=== PATIENT | male | born 1940 ===

== ENCOUNTER 2017-06-07 07:15 | Outpatient (CLI) | payer MEDICARE, OTHER | END 2017-06-07 07:16 | disposition home or self-care (01) | LOC: BICMAMMO 07:15 | PROVIDERS: ATTEND Family Medicine | DX: Z12.31 Encounter for screening mammogram for malignant neoplasm of breast (principal); Z13.820 Encounter for screening for osteoporosis | CPT/HCPCS: 77063; 77080; G0202; 77067 ==